=== PATIENT | female | born 1975 | race Caucasian/White ===

== ENCOUNTER 2016-11-28 19:00 | Inpatient (IN) | payer BC ==
--- NOTE | ~2016-11-28 | DS ---
Unit #: [id number] #: [id number] Patient: OLIVE LOZANO [id number] [facility] [address] [place] [address] [id number] I MR#: [id number] NAME: OLIVE LOZANO ROOM: P110 Age: 41 Sex: F Admission Date: 11/28/2016 : 1975 Discharge Date: 12/01/2016 Attending Physician: Jimmie Velazquez M.D. Primary Care Physician: Generic Doctor Not In System DISCHARGE SUMMARY REASON FOR ADMISSION Depression, suicidal ideation. DIAGNOSTIC STUDIES LABORATORY RESULTS: None. HOSPITAL COURSE The patient was admitted to inpatient unit on 11/28/2016 and discharged on 12/01/2016. The patient was treated on the inpatient unit with group therapy, individual therapy, medication management, expressive therapy, and structured milieu. The patient responded well with the above modalities of treatment. Subsequently, the patient was discharged with a plan to follow up in outpatient program. DISCHARGE MEDICATIONS Abilify 5 mg at bedtime for mood stabilization, Vistaril 25 mg t.i.d. for anxiety, Prozac 40 mg b.i.d. for depression. DISCHARGE DIAGNOSES Psychiatric: 1. Major depressive disorder, recurrent, severe, F33.2. 2. Anxiety disorder, not otherwise specified, F40.01. Secondary diagnosis: Deferred. Medical diagnosis: None. Stressors: Psychosocial stressors. DISCHARGE INSTRUCTIONS The patient to follow up in outpatient clinic as per social work assistant. CONDITION ON DISCHARGE The patient was pleasant and cooperative. Denied any psychotic symptom or any suicidal ideation. PROGNOSIS Guarded. DIET AND ACTIVITY As tolerated. Dictated by... Unit #: [id number] #: [id number] Patient: OLIVE LOZANO Jimmie Velazquez M.D. SZC/neetu TD: 12/02/2016 01:52 JOB #: [id number] DISCHARGE SUMMARY Page 1 of 1 X Jimmie Velazquez MD X DISCHARGE SUMMARY
--- NOTE | ~2016-11-28 | PN ---
Unit #: [id number] #: [id number] Patient: OLIVE LOZANO [id number] [facility] [address] [place] [address] [id number] I MR#: [id number] NAME: OLIVE LOZANO ROOM: [facility] Age: 41 Sex: F Admission Date: 11/28/2016 : 1975 Attending Physician: Jimmie Velazquez M.D. Admitting Physician: Jimmie Velazquez M.D. Primary Care Physician: Generic Doctor Not In System [facility] PROGRESS NOTES DATE OF SERVICE: 11/29/2016 DISCUSSION Ms. Vivar is a 41-year-old female, seen on 11/29/2016. The patient interviewed, chart reviewed, and obtained information from nursing staff. The patient continues to look sad, depressed, flat affect, tearful, anxious, and nervous. Vital signs; temperature 98.8, respiratory rate 17, and blood pressure 99/86. REVIEW OF SYSTEMS Complete review of systems unremarkable. MENTAL STATUS EXAMINATION General appearance, the patient dressed casually in hospital attire. Attention span and concentration, fair. Oriented in place and person. Mood and affect, sad, depressed, tearful, anxious, and nervous. The patient denied any suicidal or homicidal ideation at this time, but sad and depressed. Recent and remote memory, poor. Insight and judgment, poor. DIAGNOSIS Major depressive disorder, recurrent, severe, F33.2. ASSESSMENT AND PLAN Advised to continue with Prozac and discontinue Klonopin and add Abilify 5 mg at bedtime. If needed, consider further adjustment of medication. The patient to attend all the programing. If needed, consider further adjustment of medication. Dictated by... Jude Spain/neetu TD: 11/30/2016 18:26 JOB #: [id number] Unit #: [id number] #: [id number] Patient: OLIVE LOZANO [facility] PROGRESS NOTES Page 1 of 1 X Jimmie Velazquez MD PROGRESS NOTE
--- NOTE | ~2016-11-28 | PA ---
Unit #: [id number] #: [id number] Patient: GHAZALA LOZANO [id number] [facility] [address] [place] [address] [id number] MR#: [id number] NAME: GHAZALA LOZANO ROOM: P110 Age: 41 Sex: F Admission Date: 11/28/2016 : 1975 Date of Assessment: 11/29/2016 Attending Physician: Jimmie Velazquez M.D. Admitting Physician: Jimmie Velazquez M.D. Primary Care Physician: Generic Doctor Not In System PSYCHIATRIC ASSESSMENT INFORMANTS The patient reliability, fair informant and chart reliability, good. CHIEF COMPLAINT Depression. HISTORY OF PRESENT ILLNESS Ms. Ghazala Lozano is a 41-year-old white female, seen on with the above-mentioned complaint. The patient lives at home with her father and has an 11-year-old son. The patient reported she has been depressed since she was a teenager, on Prozac. The patient reports that she was taking more than prescribed Klonopin. Admitted from [place] after attempting to overdose by taking 8 to 10 Prozac and 8 to 10 Klonopin. The patient stated that boyfriend broke up with her last night unexpectedly and she is devastated. Her mom 3 years ago. The patient stated that she is still having a hard time because she lives in her home and trying to still get her things and sorting her things. She stated that she was home alone today and took the medication. The patient stated that it was a gesture to get her father's attention. The patient stated that she has had thoughts of suicide in the past and history of depression. Also, reported having problem with mood swing. The patient denied any use of any drugs or alcohol, but reported taking more Klonopin than prescribed. The patient denied any homicidal ideation or any psychotic symptom. Needing inpatient admission at this time for psychiatric stabilization. PAST PSYCHIATRIC HISTORY Remarkable for history of previous treatment on the outpatient basis. No history of any previous suicide attempt or any inpatient treatment. FAMILY HISTORY AND SOCIAL HISTORY The patient has good support system from her father. No history of any abuse. No known history of any psychiatric illness except a history of footling in mom. MEDICAL HISTORY Unremarkable for any chronic medical illness. Musculoskeletal; muscle strength and tone, no atrophy or abnormal movement. Gait normal. MEDICATION HISTORY The patient is on Prozac and Klonopin combination. ALLERGIES Unit #: [id number] #: [id number] Patient: GHAZALA LZOANO No known drug allergies. SUBSTANCE ABUSE HISTORY The patient reported tobacco use, age of onset 20; alcohol, age of onset 16; and marijuana, age of onset 19, infrequent. The patient reported mostly taking Klonopin prescribed to her. No history of blackout. No history of IV drug abuse. No history of any HIV or hepatitis or any withdrawal symptom. REVIEW OF SYSTEMS HEENT: Eyes, clear. Ears, nose, mouth, and throat; clear. CARDIOVASCULAR: Unremarkable. RESPIRATORY: Unremarkable. GI: Unremarkable. : Unremarkable. SKIN: Unremarkable. LYMPH NODE: Unremarkable. NEUROLOGIC: Unremarkable. ENDOCRINE: Unremarkable. HEMATOLOGIC: Unremarkable. ALLERGIC/IMMUNOLOGIC: Unremarkable. MUSCULOSKELETAL: Muscle strength and tone, no atrophy or abnormal movement. Gait normal. MENTAL STATUS EXAMINATION CONSTITUTIONAL: Measurement of vital signs; temperature 97.9, heart rate 91, respiratory rate 20, and blood pressure 117/55. Height 5 feet 6 inches and weight 199 pounds. GENERAL APPEARANCE: The patient dressed in hospital attire. The patient did not show any facial deformity. MUSCULOSKELETAL: Please see above. PSYCHIATRIC EXAMINATION Description of speech, regular rate and normal volume. Description of thought process, goal directed. Description of association, intact. Description of abnormal psychotic thinking; the patient denied any hallucination or delusions, but sad and depressed. Recent suicide attempt. Description of the patient's judgment: Concerning everyday activity, poor. Social situation, poor. Concerning psychiatric condition, poor. Complete mental status examination; oriented in time, place, and person. Recent and remote memory, fair. Attention span and concentration, fair. Language, able to name object and repeat phrases. Fund of knowledge, aware of current event and passive vocabulary intact. Mood and affect, sad and dysphoric. Insight and judgment, fair to poor. ASSETS AND LIABILITIES Assets, the patient is articulate and able to take care of her ADL. Liability, history of depression. ADMITTING DIAGNOSES Psychiatric: Major depressive disorder, recurrent, severe, F33.2. Secondary diagnosis: Deferred. Medical diagnosis: None. Unit #: [id number] #: [id number] Patient: GHAZALA LOZANO Stressors: Psychosocial stressors. PSYCHIATRIC PLAN AND TREATMENT GOAL AND DISCHARGE PLAN 1. Advised to admit the patient on the inpatient unit. Provide safe, supportive, and structured environment. 2. Ordered labs; CBC, CMP, UA, and UDS. 3. Precaution for self-harm and SP1 precaution. 4. Advised to continue with the following medication, Prozac and consider Abilify. If needed, consider further adjustment of medication. Advised to take her off from Klonopin and consider Vistaril. The patient to attend group therapy, individual therapy, and family session. TREATMENT GOAL To attain euthymic mood, gain insight into her problem, and learn coping skills. DISCHARGE PLAN Plan to stabilize the patient and consider followup in outpatient program. ESTIMATED LENGTH OF STAY 5 to 7 days. Dictated by... Jimmie Velazquez M.D. DAYAMI/neetu TD: 11/29/2016 15:17 JOB #: [id number] PSYCHIATRIC ASSESSMENT Page 1 of 1 X Jimmie Velazquez MD X PSYCHIATRIC ASSESSMENT
--- NOTE | ~2016-11-28 | PN ---
Unit #: [id number] #: [id number] Patient: GHAZALA LOZANO [id number] [facility] [address] [place] [address] [id number] I MR#: [id number] NAME: GHAZALA LOZANO ROOM: [facility] Age: 41 Sex: F Admission Date: 11/28/2016 : 1975 Attending Physician: Jimmie Velazquez M.D. Admitting Physician: Jimmie Velazquez M.D. Primary Care Physician: Generic Doctor Not In System [facility] PROGRESS NOTES DATE 11/30/2016 DISCUSSION Ms. Ghazala Lozano is a 41-year-old female seen on 11/30/2016. Patient pleasant, cooperative. Reports feeling better. Decrease in anxiety, depression. No side effects from medication. Able to participate in some group. Complete review of system unremarkable. MENTAL STATUS EXAMINATION General appearance, patient dressed casually. Attention span, concentration fair. Oriented in time, place and person. Mood and affect was sad, dysphoric but able to smile. Speech regular rate. Thought process goal-directed. Patient denied any thoughts of harming self or others or any psychotic symptoms. Recent and remote memory poor. Insight and judgement poor. DIAGNOSIS Major depressive disorder, recurrent. ASSESSMENT/PLAN Advised to continue with current medication and therapeutic protocol. If needed, consider further adjustment of medication. Dictated by... Jude Spain/dar TD: 12/01/2016 22:10 JOB #: [id number] Unit #: [id number] #: [id number] Patient: GHAZALA LOZANO PROGRESS NOTES Page 1 of 1 X iJmmie Velazquez MD PROGRESS NOTE
--- NOTE | ~2016-11-28 | HP ---
Unit #: [id number] #: [id number] Patient: GHAZALA LOZANO [id number] [facility] [address] [place] [address] [id number] I MR#: [id number] NAME: GHAZALA LOZANO ROOM: P110 Age: 41 Sex: F Admission Date: 11/28/2016 : 1975 Attending Physician: Jimmie Velazquez M.D. Admitting Physician: Jimmie Velazquez M.D. Primary Care Physician: Generic Doctor Not In System HISTORY AND PHYSICAL HISTORY OF PRESENT ILLNESS Ghazala is a 41-year-old female admitted to [address] [place] [address] attempted suicide by overdosing on Klonopin and Prozac. PAST MEDICAL HISTORY 1. Treatment for dysphoric disorder. 2. Obesity PAST SURGICAL HISTORY section times one and a breast reduction. SOCIAL HISTORY No tobacco, alcohol or illegal drug use. Currently and living with her father and her son. FAMILY HISTORY Noncontributory. REVIEW OF SYSTEMS CONSTITUTIONAL: No fever or chills. HEENT: Denies any sore throat, ear pain or runny nose. CARDIOVASCULAR: Denies chest pain, irregular heart rhythm or palpitations. CHEST: Denies shortness of breath or cough. No hemoptysis. GASTROINTESTINAL: Denies nausea, vomiting, diarrhea or chronic constipation. ENDOCRINE: Denies history of increased thirst or urination. No recent significant weight loss or gain. GENITOURINARY: Denies dysuria, frequency, or hematuria. SKIN: Denies any rashes. HEMATOLOGIC: Denies history of increased bleeding or bruising. MUSCULOSKELETAL: Denies any hot, swollen joints. No generalized muscle pain. NEUROLOGIC: Denies problems with vision or speech. No frequent, severe headaches. No numbness, tingling or weakness in any extremities. Denies loss of bladder or bowel control. CURRENT MEDICATIONS Prozac. ALLERGIES No known drug allergies. Unit #: [id number] #: [id number] Patient: GHAZALA LOZANO PHYSICAL EXAMINATION GENERAL: Alert, oriented, in no acute distress. VITAL SIGNS: Blood pressure 120/89, heart rate 98, temperature 97.9. HEIGHT: 5 foot 6 inches. WEIGHT: 199 pounds. SKIN: Warm and dry without rash or lesion. HEENT: Normocephalic. TMs not viewed. Oral and nasal passages clear. Conjunctivae clear. PERRLA. EOMs intact. NECK: Supple without lymphadenopathy or thyromegaly. HEART: Regular rate and rhythm without murmur. LUNGS: Clear. ABDOMEN: Soft, nontender, without masses or hepatosplenomegaly. : Not done. EXTREMITIES: No evidence of cyanosis, clubbing or edema. Moves all without focal deficit. NEUROLOGICAL: Grossly within normal limits. Cranial Nerves: II: Visual hemphill are intact. III, IV AND : Extraocular movements are intact. Pupils are equal, round and reactive to light. V: Facial sensation is grossly normal. VII: Facial movements and expression are normal. VIII: Auditory acuity grossly intact. IX, X: Uvula is midline. Phonation is normal. XI: Patient shrugs shoulders and turns head normally. XII: Tongue protrudes in the midline. Sensory and Motor Function: Sensory and motor sensation is grossly normal. Motor: moves all extremities well. Coordination: Gait is normal. Deep Tendon Reflexes: Intact. IMPRESSION Psychiatric admission. RECOMMENDATIONS Psychiatric, per psychiatrist. MEDICAL: I see no contraindications to participating in facility's activities. MEDICAL PROGNOSIS Good. MEDICAL CONDITION Stable. Dictated by... Kelly Haney TD: 11/29/2016 23:05 JOB #: [id number] Unit #: [id number] #: [id number] Patient: GHAZALA LOZANO HISTORY AND PHYSICAL Page 1 of 1 X ANIA TURCIOS APRN X HISTORY AND PHYSICAL
== END 2016-12-01 11:45 | disposition home or self-care (01) | DRG 885 ==
LOC: P1S 21:44
DX: F33.2 Major depressive disorder, recurrent severe without psychotic features (principal); R45.851 Suicidal ideations; E66.9 Obesity, unspecified; F41.9 Anxiety disorder, unspecified; Z68.32 Body mass index [BMI] 32.0-32.9, adult